=== PATIENT | male | born 1980 | race Hispanic/Latino ===

== ENCOUNTER 2022-03-15 18:01 | Emergency (ER) | payer SELFPAY ==
[2022-03-15] MEDS ORDERED: MORPHINE 4 MG/ML SYR ONE (18:22)
[2022-03-15] MEDS ORDERED: ONDANSETRON 4 MG/2 ML VIAL ONE (18:22)
--- NOTE | 2022-03-15 19:14 | RAD REPORT ---
EXAM DESCRIPTION: RAD - Forearm Left - 03/15/2022 7:05 pm CLINICAL HISTORY: Pain COMPARISON: No comparisons FINDINGS: Mildly impacted fracture of the distal radius is present. No dislocation.
--- NOTE | 2022-03-15 19:25 | EDPHYS ---
Physician Documentation [facility] Name: Eloy Figueroa Age: 41 yrs Sex: Male : 1980 Arrival Date: 03/15/2022 Time: 18:03 Bed 24 Private MD: ED Physician Robby Choudhary HPI: 03/15 18:15 This 41 yrs old Male presents to ER via Unassigned with complaints of Arm kb Injury. 18:15 The patient or guardian complains of decreased range of motion, deformity, injury, kb pain, swelling, tenderness. The complaints affect the left forearm. Context: The problem was sustained outdoors, resulted from a fall. Onset: The symptoms/episode began/occurred just prior to arrival. Treatment prior to arrival includes: no previous treatment. Modifying factors: The symptoms are alleviated by nothing. the symptoms are aggravated by movement. Associated signs and symptoms: Pertinent positives: decreased range of motion, deformity, pain, swelling. Severity of symptoms: At their worst the symptoms were moderate, in the emergency department the symptoms are unchanged. The patient has not experienced similar symptoms in the past. The patient has not recently seen a physician. Historical: - Allergies: 18:16 No Known Allergies; ld1 - Home Meds: 18:16 None [Active]; ld1 - PMHx: 18:16 None; ld1 - PSHx: 18:16 None; ld1 - Immunization history:: Adult Immunizations up to date, Client reports receiving the 2nd dose of the Covid vaccine. - Social history:: Smoking status: Patient reports the use of cigarette tobacco products, smokes one pack cigarettes per day. Patient uses alcohol, occasionally. ROS: 18:15 Constitutional: Negative for fever, chills, and weight loss. kb 18:15 MS/extremity: Positive for injury or acute deformity, decreased range of motion, pain, swelling, tenderness, of the left forearm. 18:15 All other systems are negative. Exam: 18:14 Constitutional: This is a well developed, well nourished patient who is awake, alert, kb and in no acute distress. Head/Face: Normocephalic, atraumatic. ENT: Moist Mucous membranes Cardiovascular: Regular rate and rhythm with a normal S1 and S2. No gallops, murmurs, or rubs. No pulse deficits. Respiratory: Respirations even and unlabored. No increased work of breathing. Talking in full sentences Skin: Warm, dry with normal turgor. Normal color. Neuro: Awake and alert, GCS 15, oriented to person, place, time, and situation. Moves all extremities. Normal gait. Psych: Awake, alert, with orientation to person, place and time. Behavior, mood, and affect are within normal limits. 18:14 Musculoskeletal/extremity: Extremities: grossly normal except: noted in the left forearm: decreased ROM, deformity, pain, swelling, tenderness, ROM: limited active range of motion, Circulation is intact in all extremities. Sensation intact. Vital Signs: 18:13 BP 119 / 81; Pulse 90; Resp 18; Temp 98.6; Pulse Ox 100% on R/A; Weight 81.65 kg; ld1 Height 5 ft. 10 in. (177.80 cm); Pain 10/10; 18:26 BP 106 / 74; Pulse 76; Resp 18; Temp 98.3; Pulse Ox 96% on R/A; bh1 18:44 BP 108 / 68; Pulse 88; Resp 18; Pulse Ox 99% on R/A; bh1 19:40 BP 110 / 62; Pulse 18; Resp 18; Temp 98.3(O); Pulse Ox 100% on R/A; bh1 18:13 Body Mass Index 25.83 (81.65 kg, 177.80 cm) ld1 MDM: 18:04 Patient medically screened. kb 18:14 Data reviewed: vital signs, nurses notes. Data interpreted: Pulse oximetry: on room air kb is 100 %. Interpretation: normal. 03/15 18:11 Order name: Forearm Left XRAY; Complete Time: 19:23 kb 03/15 18:11 Order name: IV Start; Complete Time: 18:24 kb 03/15 19:08 Order name: Sugar Tong Forearm Splint; Complete Time: 19:40 kb 03/15 19:08 Order name: Sling; Complete Time: 19:40 kb Administered Medications: 18:24 Drug: morphine 4 mg Route: IVP; Infused Over: 4 mins; Site: right antecubital; [facility] 18:24 Follow up: Response: No adverse reaction [facility] 18:24 Drug: Zofran (Ondansetron) 4 mg Route: IVP; Site: right antecubital; bh1 18:24 Follow up: Response: No adverse reaction bh1 Disposition Summary: 03/15/22 19:24 Discharge Ordered Location: Home kb Condition: Stable kb Diagnosis - Impacted fracture left distal radius kb Followup: kb - With: Emergency Department - When: As needed - Reason: Worsening of condition Followup: kb - With: Private Physician - When: 2 - 3 days - Reason: Recheck today's complaints, Continuance of care, Re-evaluation by your physician Discharge Instructions: - Discharge Summary Sheet kb - Radial Fracture kb Forms: - Medication Reconciliation Form kb - Thank You Letter kb - Antibiotic Education kb - Prescription Opioid Use kb Prescriptions: - Diclofenac Sodium 75 mg Oral tablet,delayed release (DR/EC) - take 1 tablet by ORAL route 2 times per day As needed; 30 tablet; Refills: 0, kb Product Selection Permitted Signatures: Dispatcher [employer] Arline Rodriguez, JOSSELYN REYES-Umu Moser RN RN 1 Berenice Watkins RN RN 1
--- NOTE | 2022-03-15 19:25 | ER ---
Nurse's Notes [facility] Name: Eloy Figueroa Age: 41 yrs Sex: Male : 1980 Arrival Date: 03/15/2022 Time: 18:03 Bed 24 Private MD: Diagnosis: Impacted fracture left distal radius Presentation: 03/15 18:12 Chief complaint:. ld1 18:13 Chief complaint: Patient states: c/o left wrist pain. Patient reports slipping and ld1 falling on left wrist. Coronavirus screen: At this time, the client does not indicate any symptoms associated with coronavirus-19. Ebola Screen: No symptoms or risks identified at this time. Initial Sepsis Screen: Does the patient meet any 2 criteria? No. Patient's initial sepsis screen is negative. Initial Sepsis Screen: Does the patient have a suspected source of infection? No. Patient's initial sepsis screen is negative. Risk Assessment: Do you want to hurt yourself or someone else? Patient reports no desire to harm self or others. Onset of symptoms was March 15, 2022. 18:13 Method Of Arrival: Ambulatory ld1 18:13 Acuity: MARY 3 ld1 Triage Assessment: 18:16 General: Appears in no apparent distress. uncomfortable, Behavior is calm, cooperative, ld1 appropriate for age. Pain: Complains of pain in left wrist and left hand Pain does not radiate. Pain currently is 10 out of 10 on a pain scale. Quality of pain is described as sharp, throbbing. Neuro: Level of Consciousness is awake, alert, obeys commands, Oriented to person, place, time, situation. Cardiovascular: Capillary refill < 3 seconds. Cardiovascular: Patient's skin is warm and dry. Respiratory: Airway is patent Respiratory effort is even, unlabored. Musculoskeletal: Reports pain in left arm. Injury Description: left wrist pain. Historical: - Allergies: 18:16 No Known Allergies; ld1 - Home Meds: 18:16 None [Active]; ld1 - PMHx: 18:16 None; ld1 - PSHx: 18:16 None; ld1 - Immunization history:: Adult Immunizations up to date, Client reports receiving the 2nd dose of the Covid vaccine. - Social history:: Smoking status: Patient reports the use of cigarette tobacco products, smokes one pack cigarettes per day. Patient uses alcohol, occasionally. Screenin:26 Abuse screen: Denies threats or abuse. Nutritional screening: No deficits noted. bh1 Tuberculosis screening: No symptoms or risk factors identified. Fall Risk None identified. Assessment: 18:26 Reassessment: No changes from previously documented assessment. General: Appears in no bh1 apparent distress. uncomfortable, Behavior is calm, cooperative, appropriate for age. Pain: Complains of pain in left arm Pain currently is 10 out of 10 on a pain scale. Quality of pain is described as sharp, throbbing. Neuro: No deficits noted. Cardiovascular: No deficits noted. Respiratory: No deficits noted. Vital Signs: 18:13 BP 119 / 81; Pulse 90; Resp 18; Temp 98.6; Pulse Ox 100% on R/A; Weight 81.65 kg; ld1 Height 5 ft. 10 in. (177.80 cm); Pain 10/10; 18:26 BP 106 / 74; Pulse 76; Resp 18; Temp 98.3; Pulse Ox 96% on R/A; bh1 18:44 BP 108 / 68; Pulse 88; Resp 18; Pulse Ox 99% on R/A; bh1 19:40 BP 110 / 62; Pulse 18; Resp 18; Temp 98.3(O); Pulse Ox 100% on R/A; bh1 18:13 Body Mass Index 25.83 (81.65 kg, 177.80 cm) ld1 ED Course: 18:03 Patient arrived in ED. as 18:04 Robby Carias PA is PHCP. cp 18:04 Robby Choudhary MD is Attending Physician. cp 18:04 PHCP role handed off by Robby Carias PA kb 18:04 Arline Long FNP-C is PHCP. kb 18:13 Berenice Watkins, FLORA is Primary Nurse. bh1 18:16 Triage completed. ld1 18:16 Arm band placed on right wrist. ld1 18:26 No apparent distress. Awaiting radiology results. bh1 18:26 Patient has correct armband on for positive identification. Bed in low position. Call bh1 light in reach. Side rails up X 1. Adult w/ patient. Pulse ox on. NIBP on. 18:26 No provider procedures requiring assistance completed. Inserted saline lock: 20 gauge bh1 in right antecubital area, using aseptic technique. Blood collected. 18:44 No apparent distress. Resting quietly. Awaiting for x-ray. Patient requests liquids. I [facility] informed him we needed to wait until we know the extent of his injury. 19:07 Forearm Left XRAY In Process Unspecified. EDMS 19:42 IV discontinued, intact, bleeding controlled, No redness/swelling at site. [facility] 19:43 Orthoglass splint: Sugar tong splint applied on left arm. Sling applied to left arm. ds4 Administered Medications: 18:24 Drug: morphine 4 mg Route: IVP; Infused Over: 4 mins; Site: right antecubital; [facility] 18:24 Follow up: Response: No adverse reaction [facility] 18:24 Drug: Zofran (Ondansetron) 4 mg Route: IVP; Site: right antecubital; [facility] 18:24 Follow up: Response: No adverse reaction [facility] Medication: 18:26 VIS not applicable for this client. [facility] Outcome: 19:24 Discharge ordered by . kb 19:41 Discharged to home ambulatory. [facility] 19:41 Condition: good 19:41 Discharge instructions given to patient, family, Instructed on discharge instructions, follow up and referral plans. medication usage, Demonstrated understanding of instructions, follow-up care, medications, splint care, Prescriptions given X 1. 19:49 Patient left the ED. [facility] Signatures: Dispatcher [employer] EDMS Arline Long, WANT AD RECEIVER-C WANT AD RECEIVER-Krupa Pavon Donovan ds4 Robby Carias PA PA cp Dibbern, Lauren, RN RN 1 Berenice Watkins RN RN [facility]
[2022-03-15 20:02] VITALS: TEMP 98.3
[2022-03-15 20:08] VITALS: BP 110/62; O2SAT 100
== END 2022-03-15 19:49 | disposition home or self-care (01) ==
LOC: ER 18:01
PROC: 2W3DX1Z Immobilization of Left Lower Arm using Splint (ICD-10-PCS; principal; 2022-03-15)
DX: S52.502A Unspecified fracture of the lower end of left radius, initial encounter for closed fracture (principal); F17.210 Nicotine dependence, cigarettes, uncomplicated
CPT/HCPCS: 96374; 96375; 99284; J2405